=== PATIENT | male | born 1970 | race African-American/Black ===

== ENCOUNTER 2020-03-02 10:47 | Emergency (ER) | payer SELFPAY ==
[~2020-03-02] VITALS: Ht 165.1 cm; Wt 81.8 kg
[2020-03-02 10:56] VITALS: Ht 165.1 cm; Wt 81.8 kg
[2020-03-02] MEDS ORDERED: COREG12.5 MG PO (10:58)
[2020-03-02] MEDS ORDERED: LOTENSIN20 MG PO (10:58)
[2020-03-02] MEDS ORDERED: NORVASC10 MG PO (10:59)
[2020-03-02] MEDS ORDERED: HYDRALAZINE HCL50 MG PO (10:59)
[2020-03-02 12:01] LABS: BASOPHILS 0 % (0-2); EOSINOPHILS 0.5 % (0-7); HEMATOCRIT 38.4 % (42.0-54.0); HEMOGLOBIN 12.6 g/dL (13.5-17.5); IMMATURE GRANULOCYTES 0.1 % (0-5); LYMPHOCYTES 13.3 % (15-50); MCH 30.8 pg (26.0-34.0); MCHC 32.8 g/dL (31.0-37.0); MCV 93.9 fL (80.0-100.0); MONOCYTES 4.4 % (2-11); NEUTROPHILS 81.7 % (40-80); PLATELET COUNT 168 10x3/uL (130-400); RBC 4.09 10x6/uL (4.20-6.10); RDW 14.8 % (11.5-14.5)
[2020-03-02 12:17] LABS: ANION GAP 11.8 mmol/L (8-16); CALCIUM 9.5 mg/dL (8.5-10.1); CARBON DIOXIDE 29.7 mmol/L (21.0-32.0); CREATININE - SERUM 8.7 mg/dL (0.6-1.3); POTASSIUM - SERUM 3.5 mmol/L (3.5-5.1)
[2020-03-02 12:22] LABS: ALBUMIN 3.5 g/dL (3.4-5.0); BILIRUBIN - TOTAL 0.31 mg/dL (0.2-1.3); PROTEIN - SERUM 7.8 g/dL (6.4-8.2)
[2020-03-02] MEDS ORDERED: LOTENSIN40 MG PO (13:01)
[2020-03-02 13:31] VITALS: BP 169/76
== END 2020-03-02 13:31 | disposition home or self-care (01) ==
LOC: D.ER 10:47
PROVIDERS: Emergency Medicine
DX: R42 Dizziness and giddiness (principal); I10 Essential (primary) hypertension; N18.6 End stage renal disease; Z99.2 Dependence on renal dialysis